=== PATIENT | female | born 2005 | race Two or more races ===

== ENCOUNTER 2024-11-17 19:40 | Emergency (ER) | payer BC, OTHER, SELFPAY ==
[2024-11-17] VITALS (11 sets, daily range): BP systolic 129; BP diastolic 80; PULSE 67–79; TEMP 37.1; O2SAT 98–100; BMI 29.5
--- NOTE | 2024-11-17 19:57 | ECG_ITS ---
[facility] Test Date: 2024-11-17 Pat Name: KALIE FAULKNER Department: Room: - Gender: Female [employer] Manager: : [id number] Requested By: [id number] Order Number: [id number] Anabel MD: KARLA CARVER M.D. Measurements Intervals [place] Rate: 72 P: 45 MT: 148 QRS: 61 QRSD: 88 T: 52 QT: 368 QTc: 392 Interpretive Statements 1100 Sinus rhythm 1102 Sinus arrhythmia 9110 normal ECG No previous ECG available for comparison Electronically Signed On 11-18-2024 17:46:08 EDT by KARLA CARVER M.D.
--- NOTE | 2024-11-17 19:58 | ED.SYNCOPE1 ---
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 The patient states she was coming out of the bathroom and passed out. She states that she was nauseated prior to passing out. She has passed out in the past. She denies any chest pain or shortness of breath. She is not certain if she could be but has not missed a menstrual period. She is not on control. She denies any chest pain or shortness of breath but still feels mildly nauseated. She is not certain if she hit her head when she fell. She denies any headache. She has no focal neurologic weakness numbness or tingling. Related Data Home Medications ?Medication ?Instructions ?Recorded ?Confirmed No Known Home Medications 11/17/24 11/17/24 Allergies Allergy/AdvReac Type Severity Reaction Status Date / Time No Known Drug Allergies Allergy Verified 11/17/24 19:44 Review of Systems ROS Status of ROS 10 or more systems reviewed and unremarkable except as noted in history and below PFSH PFSH Social History Little interest or pleasure in doing things: not at all Feeling down, depressed, or hopeless: not at all Exam Narrative Exam Narrative: Vital signs and Nursing Notes reviewed: Patient is afebrile with a normal pulse, normal blood pressure, she is not hypoxic with pulse ox of 98% on room air General: Awake, alert, oriented, no acute distress, lying comfortably on the stretcher HEENT: Normocephalic atraumatic, mucous membranes are moist and pink, eyes are clear, normal conjunctiva, vision is grossly intact, posterior pharynx is normal in appearance. Neck: Supple, no meningeal signs, no bony vertebral tenderness or step-off Chest: Lungs are clear to auscultation with good air entry, there is no wheezing rhonchi or rales appreciated no accessory muscle use, patient is speaking in complete sentences-no chest wall tenderness to palpation CVS: Regular rate and rhythm S1-S2, no murmurs rubs or gallops, pulses are brisk and equal bilaterally ABD: Soft, nondistended, nontender, no rebound guarding or rigidity, bowel sounds are normal, no pulsatile masses appreciated Extremities: Moving all extremities, no lower extremity tenderness or swelling noted, negative Homans' sign, pulses are brisk and equal bilaterally Skin: Normal in appearance without rash,pallor, petechiae or purpura Neuro: No focal deficits, speech is clear, oil expert strength is intact, no facial droop, upper and lower extremity strength and sensation is intact, negative pronator drift, positive rapid alternating hand movements Constitutional Vital Signs, click to edit/add: Last Vital Signs Temp 98.8 F 11/17/24 19:44 Pulse 71 11/17/24 21:00 Resp 20 11/17/24 21:00 BP 129/80 11/17/24 19:44 Pulse Ox 100 11/17/24 21:00 O2 Del Method Room Air 11/17/24 19:44 Course Vital Signs Vital signs: Vital Signs Temperature 98.8 F 11/17/24 19:44 Pulse Rate 79 11/17/24 19:44 Respiratory Rate 18 11/17/24 19:44 Blood Pressure 129/80 11/17/24 19:44 Pulse Oximetry 98 11/17/24 19:44 Oxygen Delivery Method Room Air 11/17/24 19:44 Temperature 98.8 F 11/17/24 19:44 Pulse Rate 71 11/17/24 21:00 Respiratory Rate 20 11/17/24 21:00 Blood Pressure 129/80 11/17/24 19:44 Pulse Oximetry 100 11/17/24 21:00 Oxygen Delivery Method Room Air 11/17/24 19:44 MDM - Syncope MDM Narrative Medical decision making narrative: This 19-year-old female was brought to the emergency department by EMS from work. The patient states she was not feeling well before work but went to work anyway because it was too late to call off. She was nauseated at work and states she was coming out of the bathroom when she passed out. According to EMS they found her on the floor. She was awake alert oriented. She was not immobilized. She was not certain if she had hit her head but did not have any neck pain. On arrival she was taken to room 7 and placed on the sports book writer. She was awake alert oriented with no specific complaints. Her neuroexam was normal. EKG done upon arrival was a sinus rhythm at 72 bpm. An IV was placed and she was medicated with IV fluids and Zofran for her nausea. A workup including CBC with differential, comprehensive metabolic profile, troponin, D-dimer, urinalysis, aspirin and Tylenol levels as well as CT scan of the brain was ordered. She has a normal white count and hemoglobin. D-dimer is normal. Comprehensive metabolic profile is normal. test is negative. Aspirin and Tylenol levels are normal. Liver function tests are normal. CT scan of the brain was reviewed by radiology and is negative for acute intracranial process. On reevaluation the patient is resting comfortably in the room with stable vital signs. She states she is feeling better. She has been ambulatory in the room without any difficulty. Her aunt joined her in the emergency department shortly after arriving. She will take her home at this time. Lab Data Attestation: I reviewed the patient's lab results. Labs: Lab Results 11/17/24 11/17/24 Range/Units 20:20 20:37 WBC 6.3 (4.0-11.0) 10^3/uL RBC 4.38 (4.20-5.40) 10^6/uL Hgb 12.9 (12.0-16.0) g/dL Hct 37.8 (36.0-48.0) % MCV 86.3 (81.0-99.0) fL MCH 29.5 (26.7-34.0) pg MCHC 34.1 (29.9-35.2) g/dL RDW 12.0 (11.0-15.0) % Plt Count 336 (150-450) 10^3/uL MPV 9.4 L (9.5-13.5) fL Neut % (Auto) 66.8 (43.0-75.0) % Lymph % (Auto) 24.2 (20.5-60.0) % [place] % (Auto) 7.4 (1.7-12.0) % Eos % (Auto) 1.1 (0.9-7.0) % Baso % (Auto) 0.3 (0.2-2.0) % Neut # (Auto) 4.2 (1.4-6.5) 10^3/uL Lymph # (Auto) 1.5 (1.2-3.8) 10^3/uL [place] # (Auto) 0.5 (0.3-0.8) 10^3/uL Eos # (Auto) 0.1 (0.0-0.7) 10^3/uL Baso # (Auto) 0.0 (0.0-0.1) 10^3/uL Abs Immat Gran (auto) 0.01 (0.00-0.03) 10^3/uL Imm/Tot Granulo (auto) 0.2 (0.0-0.5) % D-Dimer <0.19 (<=0.59) mg/L FEU Sodium 142 (136-145) mmol/L Potassium 3.6 (3.5-5.1) mmol/L Chloride 109 H (98-107) mmol/L Carbon Dioxide 26.3 (21.0-32.0) mmol/L Anion Gap 10.3 BUN 7.0 (7.0-18.0) mg/dL Creatinine 0.94 (0.55-1.02) mg/dL Est GFR ( Amer) >60 (>=60 mL/min/1.73m^2) Est GFR (Non-Af Amer) >60 (>=60 mL/min/1.73m^2) BUN/Creatinine Ratio 7.4 Glucose 65 L (74-106) mg/dL Calcium 8.9 (8.5-10.1) mg/dL Total Bilirubin 0.5 (0.2-1.0) mg/dL AST 16 (15-37) U/L ALT 17 (14-59) U/L Alkaline Phosphatase 119 H (46-116) U/L Troponin I High Sens <4.0 L (4.0-51.3) pg/mL Total Protein 7.5 (6.4-8.2) g/dL Albumin 3.9 (3.4-5.0) g/dL Globulin 3.6 g/dL Albumin/Globulin Ratio 1.1 Urine Color Lt. yellow (YELLOW) Urine Clarity Clear (CLEAR) Urine pH 6.5 (5.0-9.0) Ur Specific [place] <=1.005 A (1.005-1.025) Urine Protein Negative (NEG/TRACE) mg/dL Urine Glucose (UA) Negative (NEGATIVE) mg/dL Urine Ketones Negative (NEGATIVE) mg/dL Urine Occult Blood Negative (NEGATIVE) Urine Nitrite Negative (NEGATIVE) Urine Bilirubin Negative (NEGATIVE) Urine Urobilinogen 0.2 (0.2-1.0) EU/dL Ur Leukocyte Esterase Negative (NEGATIVE) Urine RBC None seen (0-2) #/HPF Urine WBC None seen (NONE SEEN) #/HPF Ur Squamous Epith Cells Few A (NONE/RARE) #/LPF Urine Crystals Seen A (None Seen) #/HPF Amorphous Sediment Few Urine Bacteria None seen (NONE SEEN) #/HPF Urine Casts None seen (NONE SEEN) #/LPF Urine Mucus None seen (NONE SEEN) Ur Culture Indicated? No Urine HCG, Qual Negative (NEGATIVE) Salicylates <2.8 (<=19.9) mg/dL Acetaminophen <2.0 L (10.0-30.0) ug/mL ECG Data Attestation: I personally reviewed and interpreted this ECG as follows: (Sinus rhythm with sinus arrhythmia at 72 bpm, normal axis, normal intervals, no acute ST segment elevation or T wave inversion) Discharge Plan Discharge Chief Complaint: Syncope Clinical Impression: Syncope Patient Disposition: Home, Self-Care Time of Disposition Decision: 21:10 Condition: Good Prescriptions / Home Meds: No Action No Known Home Medications Print Language: Burmese Instructions: Syncope (ED) Referrals: Physician,Non-Staff, MD [Primary Care Provider] - 1 week
[2024-11-17] MEDS: 0.9 % SODIUM CHLORIDE 1,000 ML 1000 ML IV (20:39)
[2024-11-17 20:41] LABS: Hematocrit 37.8 % (36.0-48.0); Hemoglobin 12.9 g/dL (12.0-16.0); Immature Granulocytes Abs Auto 0.01 10^3/uL (0.00-0.03); Immature Granulocytes Pct Auto 0.2 % (0.0-0.5); Lymphocytes Absolute Auto 1.5 10^3/uL (1.2-3.8); Mean Corpuscular HGB Conc 34.1 g/dL (29.9-35.2); Mean Corpuscular Hemoglobin 29.5 pg (26.7-34.0); Mean Corpuscular Volume 86.3 fL (81.0-99.0); Platelet Count 336 10^3/uL (150-450); Red Blood Count 4.38 10^6/uL (4.20-5.40); White Blood Count 6.3 10^3/uL (4.0-11.0)
[2024-11-17 20:43] LABS: Glucose Urine UA NEGATIVE (NEGATIVE)
[2024-11-17 20:45] LABS: HCG Qualitative Urine* NEGATIVE (NEGATIVE)
[2024-11-17 20:49] LABS: Crystals Seen? Seen #/HPF (None Seen)
[2024-11-17 20:50] LABS: Cast Seen? NONE SEEN #/LPF (NONE SEEN); Urine Culture Indicated NO
[2024-11-17 20:59] LABS: Alanine Aminotransferase 17 U/L (14-59); Albumin Globulin Ratio 1.1; Albumin Level 3.9 g/dL (3.4-5.0); Alkaline Phosphatase 119 U/L (46-116); Anion Gap 10.3; Aspartate Amino Transferase 16 U/L (15-37); Blood Urea Nitrogen 7.0 mg/dL (7.0-18.0); Calcium 8.9 mg/dL (8.5-10.1); Carbon Dioxide 26.3 mmol/L (21.0-32.0); Chloride 109 mmol/L (98-107); Estimated GFR (African America >60 (>=60 mL/min/1.73m^2); Estimated GFR (Non-African Ame >60 (>=60 mL/min/1.73m^2); Globulin 3.6 g/dL; Glucose 65 mg/dL (74-106); Potassium 3.6 mmol/L (3.5-5.1); Sodium 142 mmol/L (136-145); Total Protein 7.5 g/dL (6.4-8.2)
[2024-11-17 21:02] LABS: Acetaminophen <2.0 ug/mL (10.0-30.0); Salicylate <2.8 mg/dL (<=19.9)
== END 2024-11-17 21:18 | disposition home or self-care (01) ==
PROVIDERS: Emergency Provider Emergency Medicine
DX: R55 Syncope and collapse (principal); R11.0 Nausea
CPT/HCPCS: 36415; 70450; 80053; 80179; 80329; 81001; 84484; 84703; 85025; 85378; 93005; 99284; 99285